=== PATIENT | female | born 1970 | race African-American/Black ===

== ENCOUNTER 2019-07-31 13:04 | Outpatient (CLI) | payer OTHER ==
--- NOTE | 2019-07-31 13:41 | RAD ---
Exam: Chest 2 views HISTORY:Dyspnea Comparison: 05/19/2017 FINDINGS: Lungs: No masses or consolidation. Cardiac silhouette:Stable Pulmonary vessels: Normal Pleural Spaces: Clear Pneumothorax: None Osseous abnormalities: None of acuity. IMPRESSION: No focal consolidation.
== END 2019-07-31 13:05 | disposition home or self-care (01) ==
LOC: RAD 13:04
PROVIDERS: ATTEND Internal Medicine Critical Care Medicine
DX: R06.00 Dyspnea, unspecified (principal)
CPT/HCPCS: 71046

== ENCOUNTER 2020-08-17 08:28 | Outpatient (CLI) | payer OTHER ==
--- NOTE | 2020-08-17 10:05 | CT ---
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 Weight gain. COMPARISON: 10/17/2016. FINDINGS: The lung bases are unremarkable.. No calcified gallstones are seen. The liver, spleen, pancreas, ad renal glands, and right kidney are normal. There is a 3.5 cm cortical cyst in the left kidney. No free air, free fluid, or lymphadenopathy is seen in the abdomen or pelvis. The patient is post hy sterectomy. The small bowel loops are not abnormally dilated. Vascular calcifications are present w ithout evidence of aneurysmal dilatation of the abdominal aorta. No osteolytic or osteoblastic lesio ns are seen. IMPRESSION: No evidence of suspicious mass or metastatic disease. POS: [facility]
[2020-08-17] MEDS ORDERED: Iopamidol-370 76% 500 ML 1 ML ONE (12:13)
== END 2020-08-17 08:29 | disposition home or self-care (01) ==
LOC: BICCT 08:28
PROVIDERS: ATTEND Specialist
DX: D3A.020 Benign carcinoid tumor of the appendix (principal)
CPT/HCPCS: 36415; 74177; 80053; 82378; 85025; Q9967

== ENCOUNTER 2022-06-30 14:50 | Inpatient (IN) | payer OTHER ==
[~2022-06-30 14:50] MED LIST: Iopamidol-370 76% 500 ML 1 ML ONE
[2022-06-30] MEDS ORDERED: Morphine 4 MG/ML VIAL ONE (16:00)
[2022-06-30] MEDS ORDERED: Ketorolac Tromethamine 30 MG/ML VIAL ONE (16:00)
[2022-06-30 16:11] LABS: #Basophils 0.1 thou/uL (0.0-0.2); #Eosinphils 0.3 thou/uL (0.0-0.7); #Lymphocytes 1.7 thou/uL (1.20-3.40); #Neutrophils 14.4 thou/uL (1.40-6.50); %Basophils 0.4 % (0.0-1.0); %Eosinophils 1.6 % (0.0-10.0); %Lymphocytes 9.6 % (21.0-51.0); %Monocytes 5.7 % (0.0-10.0); %Neutrophils 82.6 % (42.0-75.0); Hemoglobin 11.8 g/dL (12.0-16.0); Mean Corpuscular HGB CONC 32.7 g/dL (32.0-36.0); Mean Corpuscular Hemoglobin 29.9 pg (27.0-31.0); Mean Corpuscular Volume 91.3 fL (78.0-98.0); Mean Platelet Volume 8.2 fL (7.4-10.4); Platelet Count 376 thou/uL (130-400); RBC Distribution Width 12.4 % (11.5-14.5); Red Blood Cell (RBC) Count 3.96 mill/uL (4.20-5.40); White Blood Cell (WBC) Count 17.4 thou/uL (4.8-10.8)
[2022-06-30 16:34] LABS: ALT (SGPT) 45 U/L (8-55); AST (SGOT) 29 U/L (5-34); Albumin 3.4 g/dL (3.5-5.0); Alkaline Phosphatase 100 U/L (40-110); Anion Gap 13 mmol/L (10-20); BUN (Urea Nitrogen) Less than 4 mg/dL (7.0-18.7); Bilirubin, Total 0.5 mg/dL (0.2-1.2); Calc. Creatinine Clearance 0 mL/min (70-130); Calcium 9.2 mg/dL (7.8-10.44); Carbon Dioxide 27 mmol/L (22-29); Chloride 101 mmol/L (98-107); Estimated GFR 102; Globulin 3.8 g/dL (2.4-3.5); Glucose 90 mg/dL (70-105); Lipase 52 U/L (8-78); Protein, Total 7.2 g/dL (6.0-8.3); Sodium 137 mmol/L (136-145)
[2022-06-30] MEDS ORDERED: Piperacillin/Tazobactam 3.375 GM VIAL ONE (17:48)
[2022-06-30] MEDS ORDERED: Ondansetron ODT 4 MG TAB SL PRN (20:00)
[2022-06-30] MEDS ORDERED: Lactated Ringer's 1,000 ML IV SCH (20:00)
[2022-06-30] MEDS ORDERED: Ondansetron PF 4 MG/2 ML Vial IVP PRN ×2 (20:00→22:27)
[2022-06-30] MEDS ORDERED: Piperacillin/Tazobactam 3.375 GM in Sodium Chloride 0.9% 100 ML IVPB SCH (22:00)
[2022-06-30] MEDS ORDERED: Dextrose 50% Abboject 50 ML SYRINGE SLOW IVP PRN (22:27)
[2022-06-30] MEDS ORDERED: Dextrose 5% in Water 1,000 ML IV PRN (22:27)
[2022-06-30] MEDS ORDERED: Morphine 2 MG/ML VIAL SLOW IVP PRN (22:27)
[2022-06-30] MEDS: D5 1/2 NS w/20 mEq KCL 1,000 ML IV SCH (23:12)
[2022-06-30] MEDS: Morphine 4 MG/ML VIAL SLOW IVP PRN (23:13)
[2022-06-30] MEDS: Piperacillin/Tazobactam 3.375 GM in Sodium Chloride 0.9% 100 ML IVPB SCH (23:13)
[2022-06-30] MEDS ORDERED: TETANUS, DIPHTHERIA TOX,ADULT (TDVAX) 0.5 ML VIAL IM ONE (23:59)
[2022-07-01 02:50] LABS: SARS-CoV-2 NAA Rapid Test Not Detected (NotDetected)
[2022-07-01] MEDS: Morphine 4 MG/ML VIAL SLOW IVP PRN (04:56)
[2022-07-01 05:13] VITALS: BMI 26.6
[2022-07-01 05:56] LABS: Band 13 % (5-11); Eosinophils 3 % (0-10); Hemoglobin 10.6 g/dL (12.0-16.0); Lymphocytes 17 % (21-51); MDiff Complete? YES; Mean Corpuscular HGB CONC 31.6 g/dL (32.0-36.0); Mean Corpuscular Hemoglobin 29.2 pg (27.0-31.0); Mean Corpuscular Volume 92.6 fL (78.0-98.0); Mean Platelet Volume 8.1 fL (7.4-10.4); Monocytes 11 % (0-10); Myelocyte 1 % (0-0); Neutrophil 55 % (42-75); Platelet Count 380 thou/uL (130-400); RBC Distribution Width 12.6 % (11.5-14.5); Red Blood Cell (RBC) Count 3.64 mill/uL (4.20-5.40); White Blood Cell (WBC) Count 9.5 thou/uL (4.8-10.8)
[2022-07-01 06:01] LABS: Anion Gap 10 mmol/L (10-20); BUN (Urea Nitrogen) Less than 4 mg/dL (7.0-18.7); Calc. Creatinine Clearance 138 mL/min (70-130); Calcium 8.4 mg/dL (7.8-10.44); Carbon Dioxide 28 mmol/L (22-29); Chloride 103 mmol/L (98-107); Estimated GFR 108; Glucose 110 mg/dL (70-105); Potassium 3.6 mmol/L (3.5-5.1); Sodium 137 mmol/L (136-145)
[2022-07-01] MEDS: D5 1/2 NS w/20 mEq KCL 1,000 ML IV SCH ×2 (08:43→16:38)
[2022-07-01] MEDS: Piperacillin/Tazobactam 3.375 GM in Sodium Chloride 0.9% 100 ML IVPB SCH ×2 (08:43→16:38)
[2022-07-01] MEDS: Famotidine/PF 20 mg/2ml Vial SLOW IVP SCH ×2 (08:44→21:49)
[2022-07-01] MEDS ORDERED: Prevnar 13-Val Conj/PF 0.5 ML SYRINGE IM ONE (09:00)
[2022-07-01] MEDS ORDERED: FLU VACC QS2022-23(6MOS UP)/PF 60 MCG/0.5 ML SYRINGE IM ONE (09:00)
[2022-07-01] MEDS ORDERED: Piperacillin/Tazobactam 3.375 GM VIAL ONE (16:01)
[2022-07-01] MEDS ORDERED: Sodium Chloride 0.9% 100 ML ONE (16:01)
[2022-07-01] MEDS ORDERED: fentaNYL Citrate/PF 100 MCG/2 ML SYRINGE ONE (17:13)
[2022-07-01] MEDS ORDERED: HYDROmorphone 0.5 MG/0.5 ML SYRINGE ONE ×3 (17:14→19:40)
[2022-07-01] MEDS ORDERED: Promethazine HCl 25 MG/ML VIAL ONE (17:14)
[2022-07-01] MEDS ORDERED: Dexmedetomidine 200 MCG/2 ML VIAL ONE (17:14)
[2022-07-01] MEDS ORDERED: PROPOFOL 200 MG/20 ML VIAL ONE (17:50)
[2022-07-01] MEDS ORDERED: Rocuronium Bromide 10 MG/ML (10ML VIAL) ONE (17:50)
[2022-07-01] MEDS ORDERED: Esmolol 100 MG/10 ML VIAL ONE (17:50)
[2022-07-01] MEDS ORDERED: Dexamethasone 20 MG/5 ML VIAL ONE (17:50)
[2022-07-01] MEDS ORDERED: Ketorolac Tromethamine 30 MG/ML VIAL ONE (17:50)
[2022-07-01] MEDS ORDERED: Ondansetron PF 4 MG/2 ML Vial ONE (17:50)
[2022-07-01] MEDS ORDERED: Labetalol HCl 100 MG/20 ML VIAL ONE (17:50)
[2022-07-01] MEDS ORDERED: Ondansetron HCl/PF 4 MG/2 ML Vial IVP PRN (18:27)
[2022-07-01] MEDS ORDERED: fentaNYL Citrate/PF 2,000 MCG in Sodium Chloride 0.9% 60 ML IV PRN (18:27)
[2022-07-01] MEDS ORDERED: diphenhydrAMINE 50 MG/ML VIAL IM PRN (18:27)
[2022-07-01] MEDS ORDERED: Promethazine HCl 25 MG/ML VIAL IM PRN ×2 (18:27)
[2022-07-01] MEDS ORDERED: Naloxone HCl 0.4 mg/ml Vial IV PRN (18:27)
[2022-07-01] MEDS ORDERED: Zolpidem Tartrate 5 MG TAB PO PRN (18:27)
[2022-07-01] MEDS ORDERED: Promethazine HCl 25 MG/ML VIAL IVPB PRN (18:27)
[2022-07-01] MEDS ORDERED: Ondansetron PF 4 MG/2 ML Vial IVP PRN (18:27)
[2022-07-01] MEDS ORDERED: diphenhydrAMINE 50 MG/ML VIAL IVP PRN (18:27)
[2022-07-01] MEDS ORDERED: Communication Order-Pharmacy FS SCH (18:30)
[2022-07-01] MEDS ORDERED: SUGAMMADEX SODIUM 200 MG/2 ML VIAL ONE (18:42)
[2022-07-01] MEDS ORDERED: Fentanyl CADD 100 ML IV PRN (18:53)
[2022-07-01] MEDS ORDERED: Fentanyl CADD 100 ML IV SCH (19:00)
[2022-07-01] MEDS ORDERED: Fentanyl 100 MCG/2 ML VIAL ONE (19:56)
[2022-07-01] MEDS ORDERED: hydrALAZINE 20 MG/ML VIAL ONE (20:22)
[2022-07-02] MEDS: D5 1/2 NS w/20 mEq KCL 1,000 ML IV SCH ×3 (00:14→16:46)
[2022-07-02] MEDS: Piperacillin/Tazobactam 3.375 GM in Sodium Chloride 0.9% 100 ML IVPB SCH ×3 (00:14→16:46)
[2022-07-02] MEDS: HYDROmorphone/PF 10 MG in Sodium Chloride 0.9% 99 ML IVPB PRN ×2 (04:43→18:00)
[2022-07-02 07:33] LABS: ALT (SGPT) 34 U/L (8-55); AST (SGOT) 22 U/L (5-34); Albumin 3.2 g/dL (3.5-5.0); Alkaline Phosphatase 87 U/L (40-110); Anion Gap 13 mmol/L (10-20); BUN (Urea Nitrogen) 4 mg/dL (7.0-18.7); Bilirubin, Total 0.3 mg/dL (0.2-1.2); Calc. Creatinine Clearance 126 mL/min (70-130); Calcium 9.3 mg/dL (7.8-10.44); Carbon Dioxide 26 mmol/L (22-29); Chloride 103 mmol/L (98-107); Estimated GFR 106; Globulin 3.7 g/dL (2.4-3.5); Glucose 130 mg/dL (70-105); Potassium 4.5 mmol/L (3.5-5.1); Protein, Total 6.9 g/dL (6.0-8.3); Sodium 137 mmol/L (136-145)
[2022-07-02 08:02] LABS: #Lymphocytes 1.2 thou/uL (1.20-3.40); #Monocytes 0.7 thou/uL (0.11-0.59); %Basophils 0.1 % (0.0-1.0); %Eosinophils 0.2 % (0.0-10.0); %Lymphocytes 7.4 % (21.0-51.0); %Monocytes 4.2 % (0.0-10.0); %Neutrophils 88.2 % (42.0-75.0); Hemoglobin 11.4 g/dL (12.0-16.0); Mean Corpuscular HGB CONC 31.5 g/dL (32.0-36.0); Mean Corpuscular Hemoglobin 29.2 pg (27.0-31.0); Mean Corpuscular Volume 92.7 fL (78.0-98.0); Mean Platelet Volume 7.9 fL (7.4-10.4); Platelet Count 493 thou/uL (130-400); RBC Distribution Width 12.6 % (11.5-14.5); Red Blood Cell (RBC) Count 3.89 mill/uL (4.20-5.40); White Blood Cell (WBC) Count 15.9 thou/uL (4.8-10.8)
[2022-07-02] MEDS: Famotidine/PF 20 mg/2ml Vial SLOW IVP SCH ×2 (08:47→20:29)
[2022-07-03] MEDS: Piperacillin/Tazobactam 3.375 GM in Sodium Chloride 0.9% 100 ML IVPB SCH ×3 (00:22→15:21)
[2022-07-03] MEDS: D5 1/2 NS w/20 mEq KCL 1,000 ML IV SCH ×3 (00:22→22:17)
[2022-07-03] MEDS: Famotidine/PF 20 mg/2ml Vial SLOW IVP SCH ×2 (08:40→20:11)
[2022-07-03] MEDS: HYDROmorphone/PF 10 MG in Sodium Chloride 0.9% 99 ML IVPB PRN (11:47)
[2022-07-04] MEDS: Piperacillin/Tazobactam 3.375 GM in Sodium Chloride 0.9% 100 ML IVPB SCH ×4 (00:14→23:26)
[2022-07-04] MEDS: D5 1/2 NS w/20 mEq KCL 1,000 ML IV SCH ×4 (05:15→23:27)
[2022-07-04 06:09] LABS: #Eosinphils 0.2 thou/uL (0.0-0.7); #Lymphocytes 2.1 thou/uL (1.20-3.40); #Monocytes 1.1 thou/uL (0.11-0.59); #Neutrophils 6.6 thou/uL (1.40-6.50); %Basophils 0.5 % (0.0-1.0); %Eosinophils 1.8 % (0.0-10.0); %Lymphocytes 21.1 % (21.0-51.0); %Monocytes 10.7 % (0.0-10.0); Hemoglobin 10.7 g/dL (12.0-16.0); Mean Corpuscular HGB CONC 31.8 g/dL (32.0-36.0); Mean Corpuscular Hemoglobin 29.6 pg (27.0-31.0); Mean Corpuscular Volume 92.9 fL (78.0-98.0); Mean Platelet Volume 7.4 fL (7.4-10.4); Platelet Count 578 thou/uL (130-400); RBC Distribution Width 12.5 % (11.5-14.5); Red Blood Cell (RBC) Count 3.61 mill/uL (4.20-5.40); White Blood Cell (WBC) Count 9.9 thou/uL (4.8-10.8)
[2022-07-04] MEDS: Famotidine/PF 20 mg/2ml Vial SLOW IVP SCH ×2 (08:18→21:05)
[2022-07-04] MEDS ORDERED: Piperacillin/Tazobactam 3.375 GM VIAL ONE (23:28)
[2022-07-05] MEDS: HYDROmorphone/PF 10 MG in Sodium Chloride 0.9% 99 ML IVPB PRN (03:44)
[2022-07-05] MEDS: Famotidine/PF 20 mg/2ml Vial SLOW IVP SCH ×2 (09:00→21:24)
[2022-07-05] MEDS: Piperacillin/Tazobactam 3.375 GM in Sodium Chloride 0.9% 100 ML IVPB SCH ×2 (10:20→15:06)
[2022-07-05] MEDS ORDERED: Fentanyl 100 MCG/2 ML VIAL SLOW IVP PRN (10:25)
[2022-07-05] MEDS: D5 1/2 NS w/20 mEq KCL 1,000 ML IV SCH ×3 (10:47→21:25)
[2022-07-06] MEDS: Piperacillin/Tazobactam 3.375 GM in Sodium Chloride 0.9% 100 ML IVPB SCH ×3 (01:19→15:34)
[2022-07-06] MEDS: D5 1/2 NS w/20 mEq KCL 1,000 ML IV SCH ×3 (08:38→22:18)
[2022-07-06] MEDS: Famotidine/PF 20 mg/2ml Vial SLOW IVP SCH ×2 (08:38→21:15)
[2022-07-06] MEDS ORDERED: Saccharomyces boulardii 250 MG CAP PO SCH (12:00)
[2022-07-06] MEDS ORDERED: Vancomycin HCl 125 MG/5 ML (BATCHED) UDCUP PO SCH (20:45)
[2022-07-07] MEDS: Vancomycin HCl 125 MG/5 ML (BATCHED) UDCUP PO SCH ×5 (00:38→23:52)
[2022-07-07] MEDS: D5 1/2 NS w/20 mEq KCL 1,000 ML IV SCH ×2 (00:44→12:05)
[2022-07-07] MEDS: HYDROcodone/Acetaminophen 7.5/325 mg Tablet PO PRN ×3 (00:58→23:49)
[2022-07-07] MEDS: Famotidine/PF 20 mg/2ml Vial SLOW IVP SCH ×2 (08:51→21:53)
[2022-07-07] MEDS: Saccharomyces boulardii 250 MG CAP PO SCH (08:52)
[2022-07-07] MEDS ORDERED: LIDOCAINE 4% Topical Sol 4 ML SOLN.PK.G. TP PRN (10:07)
[2022-07-07] MEDS ORDERED: Lidocaine 4% Topical Sol 50 ML BOT TOP PRN (10:55)
[2022-07-08] MEDS: D5 1/2 NS w/20 mEq KCL 1,000 ML IV SCH ×2 (01:14→06:23)
[2022-07-08] MEDS: Vancomycin HCl 125 MG/5 ML (BATCHED) UDCUP PO SCH ×3 (06:23→18:39)
[2022-07-08] MEDS: Famotidine/PF 20 mg/2ml Vial SLOW IVP SCH (08:31)
[2022-07-08] MEDS: Saccharomyces boulardii 250 MG CAP PO SCH (08:31)
[2022-07-08] MEDS: HYDROcodone/Acetaminophen 7.5/325 mg Tablet PO PRN (14:48)
[2022-07-08] MEDS: Famotidine 20 MG TAB PO SCH (22:00)
[2022-07-09] MEDS: diphenhydrAMINE 25 MG CAP PO PRN ×2 (00:30→17:49)
[2022-07-09] MEDS: Vancomycin HCl 125 MG/5 ML (BATCHED) UDCUP PO SCH ×4 (00:30→17:46)
[2022-07-09] MEDS ORDERED: Lidocaine 4% Topical Sol 50 ML BOT TOP PRN (08:00)
[2022-07-09] MEDS: HYDROcodone/Acetaminophen 7.5/325 mg Tablet PO PRN ×2 (08:57→17:46)
[2022-07-09] MEDS: Famotidine 20 MG TAB PO SCH ×2 (08:58→20:40)
[2022-07-09] MEDS: Saccharomyces boulardii 250 MG CAP PO SCH (08:58)
[2022-07-10] MEDS: Vancomycin HCl 125 MG/5 ML (BATCHED) UDCUP PO SCH ×3 (00:50→12:24)
[2022-07-10] MEDS: HYDROcodone/Acetaminophen 7.5/325 mg Tablet PO PRN ×2 (03:00→14:14)
[2022-07-10] MEDS: Saccharomyces boulardii 250 MG CAP PO SCH (09:31)
[2022-07-10] MEDS: Famotidine 20 MG TAB PO SCH (09:31)
[2022-07-10 11:34] VITALS: BP 147/97; TEMP 98.2
== END 2022-07-10 15:59 | disposition home or self-care (01) | DRG 856 ==
LOC: ERS 14:50 → SJJU 18:29
PROVIDERS: ADMIT Specialist; ATTEND Specialist
PROC: 0W9G0ZZ Drainage of Peritoneal Cavity, Open Approach (ICD-10-PCS; principal; 2022-07-01)
DX: T81.43XA Infection following a procedure, organ and space surgical site, initial encounter (principal); K65.1 Peritoneal abscess; A04.72 Enterocolitis due to Clostridium difficile, not specified as recurrent; Z20.822 Contact with and (suspected) exposure to COVID-19; I10 Essential (primary) hypertension; B96.20 Unspecified Escherichia coli [E. coli] as the cause of diseases classified elsewhere; Y83.8 Other surgical procedures as the cause of abnormal reaction of the patient, or of later complication, without mention of misadventure at the time of the procedure; Z79.899 Other long term (current) drug therapy
CPT/HCPCS: 36415; 74177; 80048; 80053; 83605; 83690; 85025; 87040; 87070; 87077; 87186; 87205; 87324; 87449; 87493; 87811; 96365; 96375; 97139; C1776; J0360; J1100; J1170; J1885; J2270; J2405; J2543; J2550; J2704; J3010; J3480; J3490; J7120; Q9967; S0028; U0002